=== PATIENT | female | born 1970 | race Caucasian/White ===

== ENCOUNTER 2016-10-26 05:36 | Day surgery (SDC) | payer BC ==
--- NOTE | 2016-10-21 09:48 | RADRPT ---
PROCEDURE: Chest Radiograph. CLINICAL INDICATION: Preop for right ovarian cystectomy TECHNIQUE: Single frontal chest radiograph. COMPARISON: None available FINDINGS: The cardiomediastinal silhouette is within normal limits. No infiltrate or effusion is seen. Th e bones are intact. IMPRESSION: 1. Unremarkable chest radiograph. RPTAT: KK .Gonzalo Brandt MD, MD Date Time Electronically viewed and signed by .Gonzalo Brandt MD, on 10/21/2016 09:48 .B/
--- NOTE | 2016-10-22 11:47 | RADRPT ---
Vent Rate: 64 bpm RR Interval: 0 msec MI Interval: 146 msec QRS Duration: 78 msec QT Interval: 390 msec QTC Interval: 402 msec P-R-T Sherwood: 65 - 36 - 37 degrees Normal sinus rhythm Normal ECG Electronically Signed By: Israel Garcia [id number]
--- NOTE | 2016-10-25 16:50 | PREOPHP ---
DATE OF ADMISSION: 10/26/2016 REASON FOR ADMISSION: She is to be admitted tomorrow [birth year]19 for laparoscopic ovarian cystectomy , possible laparotomy CHIEF COMPLAINT: Pelvic pain, persistent ovarian cysts on the right ovary. HISTORY OF PRESENT ILLNESS: This is a 46-year-old female, 4, para 3, who has been complaini ng of persistent pelvic pain. She was found to have a right ovarian cyst. This has persisted in sp ite of different modalities of treatment and she is brought in now for laparoscopic ovarian cystecto my. The alternatives to the benefits of this procedure and the risks, and possible complications we re discussed with the patient in detail in the office. She was allowed to ask questions and all her questions were answered to her satisfaction. Then, she signed the appropriate surgical informed co nsent. PAST MEDICAL HISTORY: The patient denies any medical problems. She denies cardiovascular disease, hypertension, diabetes, renal disease, liver disease, thyroid disease and neurological problems. ALLERGIES: NO KNOWN ALLERGIES. MEDICATIONS: She takes no medications on a regular basis. FAMILY HISTORY: Noncontributory. REVIEW OF SYSTEMS: A 12-point review of systems is noncontributory. PHYSICAL EXAMINATION: GENERAL: Well-developed and nourished, in no distress, alert and oriented x3 with a height of 4 fee t 11, weight 138 pounds. VITAL SIGNS: Showed the temperature to be 98, blood pressure 102/61, respirations 16 per minute, th e pulse is 72 per minute, regular. HEENT: Within normal limits. Pupils are PERRLA. NECK: Supple. The thyroid is nonpalpable. There is no organomegalies. CHEST: Showed lungs to be clear to percussion and auscultation. HEART: Normal sinus rhythm without a murmur. BREASTS: Normal without lumps. Nipples also normal. ABDOMEN: Soft. There is no organomegalies or hernias. PELVIC: Normal external genitalia. There is a moderate cystocele present. The cervix is normal. Bimanual exam: The uterus small in the midline. There is a cystic mass in the right adnexal area, tender. EXTREMITIES: Examination of lower extremities within normal limits. NEUROLOGIC: Examination also normal. IMPRESSION: 1. Persistent pelvic pain. 2. Persistent right ovarian cysts. PLAN: The patient is admitted for a right ovarian cystectomy laparoscopic, and possible laparotomy if necessary. Dictated By: COURTNEY CHACON MD CR/NTS Conf#: [id number] DID#: [id number] CC: LESLY RENTERIA MD;*End*
[2016-10-26] VITALS (11 sets, daily range): BP systolic 86–126; BP diastolic 60–74; PULSE 74–94; RESP 16–24
[~2016-10-26] VITALS: Ht 146.1 cm; Wt 62.5 kg
[2016-10-26] MEDS ORDERED: LEVO1TAB PO (06:58)
[2016-10-26] MEDS ORDERED: CEFAZOLIN 1 GM INJ ONE (07:00)
[2016-10-26] MEDS ORDERED: MIDAZOLAM 1 MG/ML 2 ML INJ ONE (07:35)
[2016-10-26] MEDS ORDERED: BUPIVACAINE 0.25%/EPI (SDV) 30 ML INJ ONE (07:44)
[2016-10-26] MEDS ORDERED: BUPIVACAINE 0.25%/EPI (SDV) 30 ML INJ INJ ONE (08:06)
[2016-10-26] MEDS ORDERED: NEOSTIGMINE 3 MG/3 ML SYRINGE ONE (08:40)
[2016-10-26] MEDS ORDERED: ONDANSETRON 4 MG INJ ONE (08:40)
[2016-10-26] MEDS ORDERED: ROCURONIUM 50 MG INJ ONE (08:40)
[2016-10-26] MEDS ORDERED: LIDOCAINE 2% (SDV) 5 ML INJ ONE (08:40)
[2016-10-26] MEDS ORDERED: GLYCOPYRROLATE 0.4 MG INJ ONE (08:40)
[2016-10-26] MEDS ORDERED: PROPOFOL 20 ML ONE (08:40)
[2016-10-26] MEDS ORDERED: LACTATED RINGER'S 1,000 ML IV SCH (08:42)
[2016-10-26] MEDS ORDERED: DIPHENHYDRAMINE 50 MG INJ IV PRN (09:00)
[2016-10-26] MEDS ORDERED: OXYCODONE/ACETAMINOPHEN (5/325) TAB PO PRN ×3 (09:00)
[2016-10-26] MEDS ORDERED: morphine (1 MG/ML) 10ML SYRINGE IV PRN ×2 (09:00)
[2016-10-26] MEDS ORDERED: ONDANSETRON 4 MG INJ IV PRN ×2 (09:00)
[2016-10-26] MEDS ORDERED: ACETAMINOPHEN 325 MG TAB PO PRN (09:00)
[2016-10-26] MEDS ORDERED: FENTAnyl 50 MCG/ML VIAL IV PRN (09:00)
[2016-10-26] MEDS ORDERED: MEPERIDINE 25 MG INJ IV PRN (09:00)
[2016-10-26] MEDS ORDERED: morphine 2 MG INJ IV PRN (09:00)
[2016-10-26] MEDS ORDERED: IBUPROFEN 600 MG TAB PO PRN (09:00)
--- NOTE | 2016-10-26 11:20 | OPR ---
DATE OF OPERATION: 10/26/2016 PREOPERATIVE DIAGNOSES: 1. Persistent pelvic pain. 2. Persistent right ovarian cyst. POSTOPERATIVE DIAGNOSIS: Large right paratubal cyst. PROCEDURE: Laparoscopic right paratubal cystectomy. SURGEON: Courtney Urruita MD. OPTOMETRIST/PRACTICE OWNER: Channing Renteria MD ANESTHESIA: General. ANESTHESIOLOGIST: Dr. Toth. COMPLICATIONS: None. SPECIMENS: The cyst was sent to pathology. ESTIMATED BLOOD LOSS: Minimal. PROCEDURE AND FINDINGS: With the patient under general anesthesia by Dr. Toth. She was positioned the table in the dorsal lithotomy position. She had a King catheter draining her bladder. Her ab domen, upper thighs and perineum were prepped with Betadine and after 3 minutes draped in the usual sterile fashion for this procedure. A small 5 mm incision was done at the level of the umbilicus. A Veress needle was inserted while we were tenting up the anterior abdominal wall. Once the tip of the needle was ascertained to be intraperitoneal by the hanging drop saline technique, it was then c onnected to the CO2 insufflator. Good pneumoperitoneum was obtained. The needle was then removed a nd a 5 mm trocar was passed in while we were tenting up the anterior abdominal wall. Through this t rocar, the 5 mm laparoscope with the endocamera was inserted. The patient was placed in Trendelenbu rg position. Two more punctures were done with 5 mm trocars, one in the right and the other one in the left lower quadrants under direct vision without any problems. The uterus was found to be abdulkadir l, extremely retroverted. The cul-de-sac of Andrés was normal. The tubes and ovaries were normal . There was a large right paratubal cyst on the tip of the right tube. The procedure was started b y opening the posterior leaf of the broad ligament. The cyst was then removed. Hemostasis was obta ined with the gyrus at 35 camacho of current. The cyst was removed through the right port and sent to pathology. There was another smaller cyst on the left tube, also peritubal, and this was opened an d drained. Hemostasis was intact. Pictures were taken for documentation. All the instruments were then removed from the patient's abdomen as well as much of the CO2 as possi ble. The incisions were infiltrated with 0.5% Marcaine with epinephrine, a total of 20 mL. They we re closed with 4-0 Monocryl. Band-Aids were applied. The King was removed. The patient withstood the procedure well and was taken to recovery room with all vital signs stable. EBL was negligible. Needle, sponge and instrument count at the end of the procedure was correct twice. Dictated By: COURTNEY RIVAS/NTS Conf#: [id number] DID#: [id number] CC: CHANNING RENTERIA MD;*EndCC*
== END 2016-10-26 11:45 | disposition home or self-care (01) ==
LOC: SDS 05:36 → UNDOADMIN 05:36 → REC 05:36 → SDS 11:45 → EDSTATUS 12:30
PROVIDERS: ATTEND Specialist
DX: N83.8 Other noninflammatory disorders of ovary, fallopian tube and broad ligament (principal); E66.9 Obesity, unspecified; Z68.29 Body mass index [BMI] 29.0-29.9, adult
CPT/HCPCS: 58662; 71010; 86850; 86900; 86901; 88304; 93005; J0690; J2250; J2405; J2710; J3010; Z7512; Z7610